=== PATIENT | female | born 1970 | race Caucasian/White ===

== ENCOUNTER 2023-12-24 08:22 | Outpatient (CLI) | payer BC, SELFPAY ==
--- OUTSIDE RECORDS SUMMARY | 2023-12-24 08:23 | XMS_ITS ---
Author Organization [facility] Address [address] [place] [address] Care Team Providers Care Rfid Engineer Name Role Phone Unavailable Unavailable Unavailable Surgery Details Not on file Complications Check Surgery Details section. Procedure Estimated Blood Loss Check Surgery Details section. Procedure Findings Check Surgery Details section. Procedure Specimens Taken Check Surgery Details section.
--- OUTSIDE RECORDS SUMMARY | 2023-12-24 08:23 | XMS_ITS | Referral Summary ---
Author Organization [facility] Address [address] [place] [address] Care Team Providers Care Apparatus Operator Name Role Phone Unavailable Primary Care Provider Unavailabl e Source Comments Patient records contain information from all sites at [facility]. For routine questions regarding patient records, call [phone] during business hours, M-F 8:00 AM - 5:00 PM Central Time. Record requests for emergency care only can be directed to [phone] at any time.[facility] Social History Tobacco Use Types Packs/Day Years Used Date Smoking Tobacco: Never Assessed Dental Answer Date Recorded Dental: Regular Dentist Unknown 08/07/19 24 Sex and Gender Information Value Date Recorded Sex Assigned at Not on file Gender Identity Not on file Sexual Orientation Not on file Plan of Treatment Not on file
--- OUTSIDE RECORDS SUMMARY | 2023-12-24 08:23 | XMS_ITS | Clinical Summary ---
Author Organization [facility] Address [address] [place] [address] Care Team Providers Care Information Services Assistant Name Role Phone Unavailable Primary Care Provider Unavailabl e Source Comments Patient records contain information from all sites at [facility]. For routine questions regarding patient records, call [phone] during business hours, M-F 8:00 AM - 5:00 PM Central Time. Record requests for emergency care only can be directed to [phone] at any time.[facility] Social History Tobacco Use Types Packs/Day Years Used Date Smoking Tobacco: Never Assessed Dental Answer Date Recorded Dental: Regular Dentist Unknown 08/07/19 24 Sex and Gender Information Value Date Recorded Sex Assigned at Not on file Gender Identity Not on file Sexual Orientation Not on file Plan of Treatment Health Maintenance Due Date Last Done Comments CT Colonography 1969 Cervical Cancer Screening 1969 Cologuard 1969 Colonoscopy 1969 Colorectal Cancer Screening 1969 FIT 1969 HIV Screening 1969 Hepatitis C Screening 1969 Mammogram 1969 Zoster Vaccines (1 of 2) 07/19/2019 Depression Screening (Annual PHQ-2) 03/19/2023 COVID-19 Vaccine ( season) 2023 Influenza Vaccine (#1) 2023 0, 12/18/2018, 12/19/2017, Additional history exists Fasting Glucose for Diabetes Screening 05/08/2026 05/08/2023 DTaP,Tdap,and Td Vaccines (3 - Td or Tdap) 06/08/2026 06/08/2016, 12/14/2010 Lipid (Cholesterol) Screening 05/08/2028 05/08/2023 Hepatitis B Vaccines Completed 04/21/2013, 11/19/2012, 10/09/2012, Additional history exists Pneumococcal vaccine (0-64 years) Aged Out No longer eligible based on patient's age to complete this topic
--- NOTE | 2023-12-24 10:03 | W.ANESCHARGE ---
Anesthesia Charges Start Date/Time Anesthesia Start Date: 12/24/23 Anesthesia Start Time: 09:20 Stop Date/Time Anesthesia Stop Date: 12/24/23 Anesthesia Stop Time: 09:57
--- NOTE | 2023-12-24 10:08 | W.ANESCHARGE ---
Anesthesia Charges Start Date/Time Anesthesia Start Date: 12/24/23 Anesthesia Start Time: 09:20 Stop Date/Time Anesthesia Stop Date: 12/24/23 Anesthesia Stop Time: 09:57
== END 2023-12-24 08:23 | disposition home or self-care (01) ==
LOC: OP CLINIC 08:22
PROVIDERS: PCP Family Medicine; Visit Provider Internal Medicine
DX: Z12.11 Encounter for screening for malignant neoplasm of colon (principal)
CPT/HCPCS: 00811; 00812; 45378; J2704

== ENCOUNTER 2024-01-02 07:25 | Outpatient (CLI) | payer BC, SELFPAY ==
--- OUTSIDE RECORDS SUMMARY | 2024-01-02 07:27 | XMS_ITS | Clinical Summary ---
Author Organization [facility] Address [address] [place] [address] Care Team Providers Care Firestopper Installer Name Role Phone Unavailable Primary Care Provider Unavailabl e Source Comments Patient records contain information from all sites at [facility]. For routine questions regarding patient records, call [phone] during business hours, M-F 8:00 AM - 5:00 PM Central Time. 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
--- OUTSIDE RECORDS SUMMARY | 2024-01-02 07:27 | XMS_ITS | Data Portability ---
Author Organization [facility], [facility] Address [address] [place] [address] Care Team Providers Care Batch Freezer Operator Name Role Phone AMBERBASILIA EPPS Primary Care Provider [phone] Assessment No assessment recorded. Plan of Treatment Reminders Order Date Submit Date Provider Last Modified By Organization Details Last Modified Time Details Appointments None record ed. Lab None record ed. Referral None record ed. Procedures None record ed. Surgeries None record ed. Imaging None record ed. Medication Orders None record ed. Patient TargetsNo targets recorded. Patient Instructions Encounter Date Encounter Id Patient Instructions Last Modified By Organization Details Last Modified Time 02/06/2020 [id number] Stress incontinence was reviewed, including risk factors and treatments. Observation, physical therapy, urethral injections, and slings were discussed in detail. Risks, benefits and alternatives were all addressed. She was given literature on slings, including the CHARISS/SUFU hand-out on mid-urethral slings. Specific risks of mesh include exposure, dyspareunia, and sling loosening. She would be interested in having sling surgery at [facility] with me in [place] in March. I will work with my clinic there to arrange the procedure. [email or web address] Not available 02/08/2020 22:06:46 Reason for Referral None Reported. Results Created Date Observation Date Name Description Value Unit Range Abnormal Flag Note LastModifiedBy Organization Detail LastModifiedTime 02/09/2002/06/2020 US, bladd er No observ ation record ed. BARCODE Not Available 2019 15:12:49 Result Notes None recorded. Problems Name Problem SNOMED Code Status Onset Date Resolution Date Notes Provider Name and Address Organization Details Recorded Time Kidney stone 70390763 Active 020 NATHALINE JAHNAGILE [address] [facility],[address], [place], [address] , [facility] 0 12:28:39 Seizure disorder 802247980 Active 020 NATHALINE LORETAHNAGILE [address] [facility],[address], [place], [address] , [facility] 0 12:29:07 Malignant neoplasm of skin 498544184 [facility]20 [facility] [address] [facility],[address], [place], [address] , [facility] 0 12:29:16 Problem Notes None recorded. Procedures Surgical History Date Name Laterality Status Provider Name and Address Organization Details Recorded Time 02/06/20 Bladder Scan completed Anitra Orta [facility] 02/06/2020 16:47:22 01/18/20 05 [facility] [address] [place] [address],SUITE [facility], [place], [place], [address] [place] [address], [facility] 02/02/2020 12:30:04 Total Hysterectomy completed [facility] [address] [place] [address],[place] [address], [place], [place], [address] [place] [address], [facility] 02/02/2020 12:30:25 Tubal Ligation completed [facility] [address] [place] [address],[facility] [address], [place], [address] [place] [address], [facility] 02/02/2020 12:30:40 Imaging Results Imaging Date Name Status LastModified by Organiz ation Details LastModified Time 02/06/2020 US, bladder completed BARCODE Information n ot available 02/09/2020 15:12:49 Procedure Notes None recorded. Medical Equipment None Reported. Allergies No known drug allergies Medications Name Sig Start Date Stop Date Status Note LastModified by Organization Details LastModified Time levetiracetam 1,000 mg tablet Take 1 tablet every 12 hours by oral route. active Not Available Not Available No t Available Vitals Date Recorded Body height Body mass index (BMI) Body weight Provider Name and Address Organization Details Last Updated DateTime 02/06/2020 162.56 cm 26.1 kg/m2 09107.04 g NATHALINE JAHNAGILE [address] [facility],[address], [place], [address], [facility] 02/06/2020 16:11:45 Social History None recorded. Functional Status None recorded. Mental Status None recorded. Family History Nothing Reported. Medical History Condition Response Kidney Stones Y Cancer Gynecological HistoryNo gynecological history recorded. Obstetrics History GPAL:G 0 P 0 0 0 0 Past Encounters Encounter ID Performer Location Encounter Start Date Encounter Closed Date Diagnosis/Indication Diagnosis SNOMED-CT Code Diagnosis ICD10 Code [id number] Mikhail Alvarez MD [facility] [address] [facility],[address] [place] [address] 02/06/2020 15:59:47 02/09/2020 12:08:44 Female stress incontinence 83485037 N39.3 Health Concerns Section Related Observation LastModified by Organization Detai ls LastModified Time None Recorded Concern Status LastModified by Organization Details LastModified Time None Recorded Advance Directives Directive None Recorded Payers Encounter Date Sequence Insurance Name Policy Number Policy [place] Covered Member ID [place] Member ID Guarantor Name 02/06/2020 1 [facility] 1 Dov Rosario [id number] Notes Date Note Type Note Provider Name and Address Organization Details Recorded Time 02/06/2020 text/html HPI Notes: 02/06/20: New pt NICOLA with coughing sneezing laughing, have tried kegels Sometimes wears pads Used to get a lot infections after baths/swimming but avoids and better now Has had hematuria with bladder infections Has passed on her own non smoker, no blood thinner hx of hysterectomy/ 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
--- OUTSIDE RECORDS SUMMARY | 2024-01-02 07:27 | XMS_ITS | Referral Summary ---
Author Organization [facility] Address [address] [place] [address] Care Team Providers Care City Route Driver Name Role Phone Unavailable Primary Care Provider Unavailabl e Source Comments Patient records contain information from all sites at [facility]. For routine questions regarding patient records, call [phone] during business hours, M-F 8:00 AM - 5:00 PM Central Time. 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
--- OUTSIDE RECORDS SUMMARY | 2024-01-02 07:28 | XMS_ITS ---
Author Organization [facility] Address [address] [place] [address] Care Team Providers Care Java Manager Name Role Phone Unavailable Unavailable Unavailable Surgery Details Not on file Complications Check Surgery Details section. Procedure Estimated Blood Loss Check Surgery Details section. Procedure Findings Check Surgery Details section. Procedure Specimens Taken Check Surgery Details section.
--- NOTE | 2024-01-02 07:45 | CRLHL7_ITS ---
For Patients: As a result of the Cures Act, medical imaging exams and procedure reports are released immediately into your electronic medical record. You may view this report before your referring provider. If you have questions, please contact your health care provider. BILATERAL SCREENING MAMMOGRAM WITH COMPUTER-AIDED DETECTION AND TOMOSYNTHESIS TECHNIQUE: CC and MLO views were obtained. These mammographic images have been obtained using full-field digital technique. These mammographic images were interpreted with the benefit of computer-aided detection. Breast Tomosynthesis was used in this interpretation. COMPARISON FILM: 02/25/18, 04/14/16, 08/12/14. FINDINGS: There are scattered areas of fibroglandular density IMPRESSION: There is no radiographic evidence for malignancy. ASSESSMENT: BI-RADS Category 1: Negative RECOMMENDATION: Routine screening mammogram in 1 year. A lay language report of this examination will be provided to the patient. Milton Arriaza M.D. Diagnostic Radiologist [email or web address] Transcribed: 2:47 p.mDarek mcdonnell/Dictated by: Milton Arriaza MD @ 01/08/2024 8:58:00 AM (Electronically Signed)
== END 2024-01-02 07:26 | disposition home or self-care (01) ==
LOC: MAMMO 07:26
PROVIDERS: PCP Family Medicine; Visit Provider Family Medicine
DX: Z12.31 Encounter for screening mammogram for malignant neoplasm of breast (principal)
CPT/HCPCS: 77063; 77067

== ENCOUNTER 2024-12-26 19:00 | Outpatient (CLI) | payer BC, SELFPAY | END 2024-12-26 19:01 | disposition home or self-care (01) | PROVIDERS: PCP Family Medicine; Visit Provider Family Medicine | DX: N30.00 Acute cystitis without hematuria (principal) | CPT/HCPCS: 87086 ==

== ENCOUNTER 2024-12-28 13:37 | Emergency (ER) | payer BC, SELFPAY ==
--- OUTSIDE RECORDS SUMMARY | 2024-12-28 13:39 | XMS_ITS | Clinical Summary ---
Author Organization [facility] Address [address] [place] [address] Care Team Providers Care Director Of Laboratory Operations Name Role Phone Unavailable Primary Care Provider Unavailabl e Source Comments Patient records contain information from all sites at [facility]. For routine questions regarding patient records, call [phone] during business hours, M-F 8:00 AM - 5:00 PM Central Time. 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 Gender Identity Not on file Sexual Orientation Not on file Plan of Treatment Health Maintenance Due Date Last Done Comments CT Colonography 1969 Cervical/Vaginal Cancer Screening 1969 Cologuard 1969 Colonoscopy 1969 Colorectal Cancer Screening 1969 FIT 1969 HIV Screening 1969 Hepatitis C Screening 1969 Mammogram 1969 Pneumococcal vaccine (50+ years) (1 of 1 - PCV) 07/19/2019 Zoster Vaccines (1 of 2) 07/19/2019 Depression Screening (Annual PHQ-2) 03/19/2024 COVID-19 Vaccine (1 - 2024- season) 2024 Influenza Vaccine (#1) 2024 , 12/18/2018, 12/19/2017, Additional history exists Fasting Glucose for Diabetes Screening 05/08/2026 05/08/2023 DTaP,Tdap,and Td Vaccines (3 - Td or Tdap) 06/08/2026 06/08/2016, 12/14/2010 Lipid (Cholesterol) Screening 05/08/2028 05/08/2023 Hepatitis B Vaccines Completed 04/21/2013, 11/19/2012, 10/09/2012, Additional history exists IPV Vaccines Aged Out No longer eligi ble based on patient's age to complete this topic Insurance [employer]
--- OUTSIDE RECORDS SUMMARY | 2024-12-28 13:39 | XMS_ITS | Data Portability ---
Author Organization [facility], [facility] Address [address] [place] [address] Care Team Providers Care Trader Fixed Income Name Role Phone SAMANTHA BASILIA Primary Care Provider Assessment No assessment recorded. Plan of Treatment [...] By Organization Details Last Modified Time 02/06/2020 [id number] Stress incontinence was reviewed, including risk factors and treatments. Observation, physical therapy, urethral injections, and slings were discussed in detail. Risks, benefits and alternatives were all addressed. She was given literature on slings, including the CHARISS/SUFU hand-out on mid-urethral slings. Specific risks of mesh include exposure, dyspareunia, and sling loosening. She would be interested in having sling surgery at [facility] with me in [place] in March. I will work with my [...] Address Organization Details Recorded Time Kidney stone 20986837 Active 020 [facility] JAR[facility] [address] [facility],[place] [address], [place], [address] , [facility] 0 12:28:39 Seizure disorder 494110006 Active 020 [facility] JAREDAGILE [address] [place] [address],[address] [place] [address], [address] , [facility] 0 12:29:07 Malignant neoplasm of skin 855837637 Active 020 [facility] [address] [place] [address],[address], [address] , [facility] 0 12:29:16 Problem Notes None recorded. Procedures Surgical History Date Name Laterality Status Provider Name and Address Organization Details Recorded Time 02/06/20 20 Bladder Scan completed Anitra Orta [facility] 02/06/2020 16:47:22 01/18/20 05 Cholecystectomy completed [address], [address], [facility] 02/02/2020 12:30:04 Total Hysterectomy completed [address],[place] [address], [facility] 02/02/2020 12:30:25 Tubal Ligation completed [place] [address], [facility] 02/02/2020 12:30:40 Imaging Results None recorded. Procedure Notes None recorded. Medical Equipment None [...] Updated DateTime 02/06/2020 162.56 cm 26.1 kg/m2 50998.04 g [facility] JAREDAGI [address] [place] [address],[address], [address], [facility] 02/06/2020 16:11:45 Social History None recorded. Functional Status None recorded. Mental Status None recorded. Family History Nothing Reported. Medical History Condition Response Cancer Kidney Stones Y Gynecological HistoryNo gynecological history recorded. Obstetrics History GPAL:G 0 P 0 0 0 0 Past Encounters Encounter ID Performer Location Encounter Start Date Encounter Closed Date Diagnosis/Indication Diagnosis SNOMED-CT Code Diagnosis ICD10 Code Diagnosis IMO Codes Diagnosis Note [id number] Mikhail Alvarez MD [facility] [address] [facility],[address] [facility] [address] 02/06/2020 15:59:47 02/09/2020 12:08:44 Female urinary stress incontinence 85126462 N39.3 Health Concerns Section Related Observation LastModified by Organization Detai ls LastModified Time None Recorded Concern Status LastModified by Organization Details LastModified Time None Recorded Advance Directives Directive None Recorded Payers Insurance Date Sequence Insurance Name Policy Number Policy [place] Covered Member ID [place] Member ID Guarantor Name 03/02/2020 1 [facility] 1 Dov Justinetracylynne [id number] Notes Date Note Type Note Provider Name and Address Organization Details Recorded Time 02/06/2020 text/html 02/06/20: New pt NICOLA with coughing sneezing laughing, have tried kegels Sometimes wears pads Used to get a lot infections after baths/swimming but avoids and better now Has had hematuria with bladder infections Has passed on her own non smoker, no blood thinner 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
--- OUTSIDE RECORDS SUMMARY | 2024-12-28 13:39 | XMS_ITS | Clinical Summary ---
Author Organization [facility] Address [address] [place] [id number] Care Team Providers Care Oral And Maxillofacial Surgeon Name Role Phone Debbie Bose MD Primary Care Provi kenny Tammie Gross Unavailable [phone] Unavailable Allergies No known active allergies Medications levETIRAcetam (KEPPRA) 500 mg tablet Take 1,250 mg by mouth two times daily. 02/26/20 20 Active naltrexone (REVIA) 50 mg tabletIndications: Class 2 severe obesity with body mass index (BMI) of 35 to 39.9 with serious comorbidity,Cravin g for particular food Take 0.5 Tablets (25 mg) by mouth once daily. 30 Tablet 1 4 3:39 PM DATABASE OPERATOR 05/08/19 24 Active ondansetron (ZOFRAN ODT) 4 mg disintegrating tabletIndications: Nausea Place 2 Tablets (8 mg) on the tongue every 8 hours if needed for Nausea/Vomiting. 10 Tablet 4 9:08 AM DATABASE OPERATOR 05/14/19 24 Active loperamide (IMODIUM) 2 mg capsuleIndications :Diarrhea, unspecified type Take 2 capsules (4mg) orally with 1st loose stool, then 1 capsule (2mg) with other loose stools. Max 16 mg in 24 hrs. 40 Capsule 4 9:08 AM DATABASE OPERATOR 05/14/19 24 Active FreeStyle Sheldon 3 Sensor for continuous blood glucose monitor (CGM)Indications:H yperglycemia To be used to read blood sugars, follow outside sales representative directions. 6 Each 3 05/14/19 24 Active Active Problems Problem Noted Date Diagnosed Date Kidney stone 02/01/2020 Seizure disorder Overview (12/14/2010): petit seizures, currently does not see neurologist No seizures in several yrs, not currently no medication Skin cancer of upper limb or shoulder Overview (12/14/2010): unsure of what type Immunizations Immunization Administration Dates Next Due Hepatitis B (Adult) 04/21/2013, 3,10/09/2012,1991,10/06/1991,09/04/1991 Influenza Intradermal PF 18-64 yrs 02/01/2011 Influenza RIV4 (Age 18+ Year s) PRESERV FREE 12/18/2018 Influenza Virus, Unspecified 04/25/2013 Influenza, IIV3 (Age 6-35 mos) 12/24/2019,2017,12/31/2012 Influenza, IIV3 (Age >=3 years) 01/15/20 14,01/05/2004,01/21/2003,2001 Influenza, IIV4 01/03/2017,12/24/2015 MMR 10/09/2012 Td (Age >=7 Years) 07/14/2004 Tdap 06/08/2016,12/14/2010 Family History Medical History Relation Name Comments Diabetes Father Other Father CHF, leg amputa tion from DM Seizures Maternal Grandfather Seizures Mother Diabetes Sister Relation Name Status Comments Father Maternal Grandfather Maternal Grandmother Mother Alive Paternal Grandfather Paternal Grandmother Sister Alive Social History Tobacco Use Types Packs/Day Years Used Date Smoking Tobacco: Never Passive Smoke Exposure: Past Smokeless Tobacco: Never Tobacco Cessation:Counseling Given: Not Answered Alcohol Use Standard Drinks/Week Comments Yes 0 (1 standard drink = 0.6 oz pur e alcohol) rare Social Connections Answer Date Recorded Frequency of Communication with Friends and Fami ly Not on file 05/08/2023 Interpersonal Safety Answer Date Record ed Are you being hit, kicked, p ushed or yelled at (see row info)? No 05/14/2023 Interpersonal Safety Abuse 12 - 18 Not on file 05/14/2023 Interpersonal Safety Ambulatory Vulnerability No t on file 05/14/2023 Comments No Sex and Gender Information Value Date Recorded Sex Assigned at Not on file Legal Sex Female 6:11 AM DATABASE OPERATOR Gender Identity Not on file Sexual Orientation Not on file Obstetrics History Para Term AB IAB SAB Ectopic Multiple Livin g Live Births 5 4 2 2 1 0 1 0 0 2 Date Outcome GA Total Labor Labor/2nd/3rd Weight Sex Type Anes PTL Concepcion A1 A5 Name Clin Term Term SAB Last Filed Vital Signs Vital Sign Reading Time Taken Comments Blood Pressure 119/88 05/14/2023 6:37 AM DATABASE OPERATOR Pulse 61 05/14/2023 6:37 AM DATABASE OPERATOR Temperature 36.7 C (98.1 F) 05/14/2023 6:27 AM DATABASE OPERATOR Respiratory Rate 18 05/14/2023 6:27 AM DATABASE OPERATOR Oxygen Saturation 94% 05/14/2023 6:37 AM DATABASE OPERATOR Inhaled Oxygen Concentration - - Weight 91.6 kg (202 lb) 05/14/2023 6:27 AM DATABASE OPERATOR Height 162.6 cm (5' 4) 05/14/2023 6:27 AM DATABASE OPERATOR Body Mass Index 34.67 05/14/2023 6:27 AM DATABASE OPERATOR Plan of Treatment Health Maintenance Due Date Last Done Comments Depression screening for age 12+ 1981 HIV for age 15-65 1984 BMI (ht and wt on same day) for age 18+ 07/19/1987 Hepatitis C screening for ag e 18-79 07/19/1987 Colonoscopy through age 75 2014 Mammogram for age 45-75 2014 12/19/2010 Pneumococcal series for age 50+ (1 of 1 - PCV) 07/19/2019 Zoster (shingles) series for age 50+ (1 of 2) 07/19/2019 COVID-19 vaccine series (1 - 2023- season) 2024 Influenza Vaccine (#1) 2024 0, 12/18/2018, 12/19/2017, Additional history exists Tetanus booster 06/08/2026 06/08/2016, 11/18, 07/14/2004 Lipids for age 45-75 05/08/2028 05/08/2023, 12/15/19 11 RSV vaccine for adults or (1 - 1-dose 75+ series) 2044 Hepatitis B series for 19+ Completed 04/21, 11/19/2012, 10/09/2012, Additional history exists Medical Devices Implanted Type Area Guidance Consultant Device Identifier Shelf Expiration Date Model / Serial / Lot Sling Pelvic Altis Sis Continence - [id number] Implanted:Qty: 1 on 03/25/2020 by Mikhail Alvarez MD at [facility] N/A: Vagina Coloplast Margaret 10/02/2020 [id number] / / [id number] Procedures Procedure Name Priority Date/Time Associated Diagnosis Comments LIPID PANEL W REFLEX MEASURED LDL Routine 05/08/2023 3:30 PM DATABASE OPERATOR Class 2 severe obesity with body mass index (BMI) of 35 to 39.9 with serious comorbidity (HC) XR MAMMO BILAT SCREEN FFDM (IA) Routine 12/19/2010 9:34 AM CDT Other screening mammogram from Last 3 Months or Most Recently Relevant to Health Maintenance Results * LIPID PANEL W REFLEX MEASURED LDL (05/08/2023 3:30 PM DATABASE OPERATOR) CHOLESTEROL,TOTAL 192 100 - 199 mg/dL 05/08/2023 4:10 PM [facility] Comment: Cholesterol, Total Reference Ranges Desirable <200 mg/dL Borderline 200-239 mg/dL High >=240 mg/dL TRIGLYCERIDES 105 <150 mg/dL 05/08/2023 4:10 PM [facility] HDL CHOLESTEROL 57 >40 mg/dL 4:10 PM [facility] NON-HDL CHOLESTEROL 135 <145 mg/dl 05/08/2023 4:10 PM [facility] CHOL/HDL RATIO 3.37 <4.50 05/08/2023 4:10 PM [facility] LDL CHOLESTEROL 114 <=130 mg/dL 05/08/2023 4:10 PM [facility] VLDL CHOLESTEROL 21 <=30 mg/dL 05/08/2023 4:10 PM [facility] PROVIDER ORDERED STATUS RANDOM 05/08/2023 4:10 PM DATABASE OPERATOR [facility] Blood BLOOD SPECIMEN / Unknown Venipuncture / Unknown 05/08/2023 3:30 PM DATABASE OPERATOR 05/08/2023 3:32 PM DATABASE OPERATOR us Debbie Bose MD CHEMISTRY Fin al Result [facility] [address] [place] [address] * XR MAMMO BILAT SCREEN FFDM (12/19/2010 9:34 AM CDT) Anatomical Region Laterality Modality BREASTS, Breast Left, Breast Right Bilateral Mammography Impressions 12/19/2010 12:26 PM CDT There is no radiographic evidence for malignancy. Recommend annual mammograms. A lay language report of this examination will be provided to the patient. MAMMOGRAM ASSESSMENT: ACR 1 Negative Narrative 12/19/2010 12:26 PM CDT XR MAMMO BILAT SCREEN FFDM [G0202.0] CLINICAL HISTORY: This is an asymptomatic 40 y.o. patient. INDICATION FOR EXAM: Mammogram Screening. TECHNIQUE: CC & MLO views were obtained. This digital study was evaluated with the assistance of Computer-Aided Detection. COMPARISON FILM: This is a baseline study. FINDINGS: Mammographically, the breast tissue is heterogeneously dense, which could obscure detection of small masses (approximately 51% - 75% glandular). There are no dominant masses, suspicious micro calcifications or areas of architectural distortion. Procedure Note Hilario Riojas DO - 12/19/2010 XR MAMMO BILAT SCREEN FFDM [G0202.0] CLINICAL HISTORY: This is an asymptomatic 40 y.o. patient. INDICATION FOR EXAM: Mammogram Screening. TECHNIQUE: CC & MLO views were obtained. This digital study was evaluatedwith the assistance of Computer-Aided Detection. COMPARISON FILM: This is a baseline study. FINDINGS: Mammographically, the breast tissue is heterogeneously dense,which could obscure detection of small masses (approximately 51% - 75%glandular). There are no dominant masses, suspicious micro calcificationsor areas of architectural distortion. IMPRESSION: There is no radiographic evidence for malignancy. Recommendannual mammograms. A lay language report of this examination will be provided to the patient. MAMMOGRAM ASSESSMENT: ACR 1 Negative Pamela burnett Result from Last 3 Months or Most Recently Relevant to Health Maintenance Insurance Advance Directives * Full Code (Latest Code Status on File) Date Activated Date Inactivated Comments 03/25/2020 10:29 AM 03/25/2020 4:49 PM Question Answer Comments Code Status Discussion: Discussed Care Teams Oral And Maxillofacial Surgeon Relationship Specialty Start Date End Date Debbie Bose MD [address] [place] [address] PCP - General Family Practice 05/14/23 Tammie Gross PA [address] [place] [address] Physician Chaperon 05/17/[address] [address] Exhibit Builder 05/17/23
--- OUTSIDE RECORDS SUMMARY | 2024-12-28 13:39 | XMS_ITS | Patient Health Record ---
Author Organization [facility] Address [address] [place] [address] Care Team Providers Care Road Test Examiner Name Role Phone Narinder Kemp MD Unavailable [phone] Reason For Referral No Information Plan Of Treatment No Information Insurance Providers Payer Name Payer Address Payer Phone Subscriber Number Group Number Insured Name Patient Relationship to Insured Coverage Start Date Coverage End Date [employer] ([employer]) [address] [place] [address] Crissy Rosario Self - patient is the insured [facility] [id number] [place] [address] [address] [place], [place] [id number] Dov Rosario Spouse - patient is the spouse of the insured 8
[2024-12-28 13:45] VITALS: BP 139/93; PULSE 82; RESP 20; TEMP 36.5; O2SAT 96; BMI 35.0
--- NOTE | 2024-12-28 14:13 | ED.ABDPAIN ---
HPI - Abdominal Pain General Time Seen by Provider: 14:13 <Mayela Coulter MD - Last Filed: 12/30/24 19:54> Date Seen: 12/28/24 <Mayela Coulter MD - Last Filed: 12/30/24 19:54> Chief Complaint: Abdominal Pain <Mayela Coulter MD - Last Filed: 12/30/24 19:54> Stated Complaint: Lower ABD pain, Pelvic pain,Back <Mayela Coulter MD - Last Filed: 12/30/24 19:54> Time Seen by Provider: 12/28/24 14:12 <Mayela Coulter MD - Last Filed: 12/30/24 19:54> Source: patient and RN notes reviewed <Mayela Coulter MD - Last Filed: 12/30/24 19:54> Mode of arrival: ambulatory <Mayela Coulter MD - Last Filed: 12/30/24 19:54> Limitations: no limitations <Mayela Coulter MD - Last Filed: 12/30/24 19:54> History of Present Illness HPI narrative: This 54-year-old female is coming in with ongoing concerns of right lower pelvic and suprapubic pain associated with urinary symptoms. She was having urinary frequency, slight urgency and feeling incomplete emptying accompanying pelvic discomfort after urination. Her urinalysis was not definitive but she has had a history of UTIs and it was decided to treat her with Bactrim DS. Her urine culture has come back negative. She is still noting discomfort, she is feeling pain radiating towards the vagina. She is status post hysterectomy. She has had a history of kidney stones. She notes no fevers or chills, no nausea or vomiting. The antibiotic really has not changed her urinary symptoms. <Mayela Coulter MD - Last Filed: 12/30/24 19:54> Related Data Home Medications: Home Medications ?Medication ?Instructions ?Recorded ?Confirmed levetiracetam 500 mg tablet 1,250 mg PO BID 12/05/23 12/30/24 Previous Rx's ?Medication ?Instructions ?Recorded estradiol 10 mcg vaginal tablet 10 mcg vaginal 2XW #28 tabs 12/30/24 (Vagifem) <Mayela Coulter MD - Last Filed: 12/30/24 19:54> Allergies/Adverse Reactions: Allergies Allergy/AdvReac Type Severity Reaction Status Date / Time No Known Drug Allergies Allergy Verified 12/30/24 09:31 <Mayela Coulter MD - Last Filed: 12/30/24 19:54> Review of Systems Narrative As per HPI. 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 - Other obesity due to excess calories (ICD-10) <Mayela Coulter MD - Last Filed: 12/30/24 19:54> Surgical History: Surgical History History of cosmetic surgery ?Z98.890 - Other specified postprocedural states (ICD-10) History of bladder suspension procedure (03/25/20) ?Z98.890 - Other specified postprocedural states (ICD-10) ?Z87.448 - Personal history of other diseases of urinary system (ICD-10) History of cholecystectomy (2004) ?Z90.49 - Acquired absence of other specified parts of digestive tract (ICD-10) History of hand surgery (11/09/15) ?Z98.890 - Other specified postprocedural states (ICD-10) History of brain surgery (2002) ?Z98.890 - Other specified postprocedural states (ICD-10) History of tubal ligation ?Z98.51 - Tubal ligation status (ICD-10) History of hysterectomy (2005) ?Z90.710 - Acquired absence of both cervix and uterus (ICD-10) <Mayela Coulter MD - Last Filed: 12/30/24 19:54> Family History: Family History Father CHF (congestive heart failure) Diabetes Alcohol dependence Son Asthma Depression Sister Diabetes Maternal Grandfather Seizure disorder Mother Seizure disorder Alcohol dependence <Mayela Coulter MD - Last Filed: 12/30/24 19:54> Social History: 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 Does not exercise regularly. No tobacco use or illicit drug use. No alcohol use. Feels safe in her home. Has 2 kids. . What is your current living situation?: I presently have a place to live Problems where you live: no known problems In the past 12 months, utilities in danger of being shut off: no In past 12 months, lack of transportation kept you from medical appts, meetings, work, or getting things needed for daily living: no In the past 12 mos, have been you worried that your food would run out before you had money to buy more?: never true In the past 12 mos, the food you bought just didn't last and you didn't have money to buy more?: never true Smoking Status: Never smoker How often do you have a drink containing alcohol: monthly or less AUDIT-C Alcohol total score: 1 Non-prescribed substance use: denies use How often does anyone, including family, friends and others, physically hurt you: never How often does anyone, including family, friends and others, insult or talk down to you: never How often does anyone, including family, friends and others, threaten you with harm: never How often does anyone, including family, friends and others, scream or curse at you: never <Mayela Coulter MD - Last Filed: 12/30/24 19:54> Exam Const: Vital Signs, click to edit/add: Vital Signs - 24 hr 12/28/24 13:45 12/28/24 16:33 12/28/24 19:28 Temperature 97.7 F 97.7 F 97.3 F L Pulse Rate [Pulse Oximeter] 82 52 L 54 L Respiratory Rate 20 18 18 Blood Pressure [Ri ght Upper Arm] 139/93 H 117/85 124/92 H Pulse Oximetry 96 96 95 Oxygen Delivery Me thod Room Air Room Air Room Air This 54-year-old female is alert, interactive, no apparent distress. Sclera clear, face atraumatic, speech normal. Lungs are clear, good air entry come to wheeze or crackles, no tachypnea, no accessory muscle use. She has no CVA tenderness. CV regular rate and rhythm, no murmur, normal S1-S2. Abdomen is soft, nondistended, normal bowel sounds. She has some left lower quadrant tenderness juxtaposed by the suprapubic area, I do not feel any masses or any organomegaly, rebound or guarding. Pelvic exam and bimanual exam deferred at this moment. <Mayela Coulter MD - Last Filed: 12/30/24 19:54> Vital Signs, click to edit/add: Vital Signs - 24 hr 12/28/24 13:45 12/28/24 16:33 12/28/24 19:28 Temperature 97.7 F 97.7 F 97.3 F L Pulse Rate [Pulse Oximeter] 82 52 L 54 L Respiratory Rate 20 18 18 Blood Pressure [Ri ght Upper Arm] 139/93 H 117/85 124/92 H Pulse Oximetry 96 96 95 Oxygen Delivery Me thod Room Air Room Air Room Air <Mikhail Alvarez MD - Last Filed: 12/28/24 20:10> Documenting provider has reviewed patient's vital signs: yes <Mayela Coulter MD - Last Filed: 12/30/24 19:54> Course Course ED Course: Patient admits she was wondering about ovarian cyst, reviewed that certainly is in the differential. Given her symptoms, I am most concerned about a kidney stone. Will start with a noncontrast CT. Will give her some IV Toradol. If she does provide urine, we can recheck the urinalysis. Will get some basic labs on her. She understands that we may need to proceed with pelvic ultrasonography as well. <Mayela Coulter MD - Last Filed: 12/30/24 19:54> Reevaluation(s) Time of Reevaluation #1: 16:40 <Mayela Coulter MD - Last Filed: 12/30/24 19:54> Reevaluation #1: Patient's CT has not been read yet; have turned care over to Dr. Alvarez. <Mayela Coulter MD - Last Filed: 12/30/24 19:54> Vital Signs Vital signs: Initial Vital Signs Temperature 97.7 F 12/28/24 13:45 Temperature Source Temporal Artery Scan 12/28/24 13:45 Pulse Rate 82 12/28/24 13:45 Respiratory Rate 20 12/28/24 13:45 Blood Pressure 139/93 H 12/28/24 13:45 Blood Pressure Mean 108 H 12/28/24 13:45 Pulse Oximetry 96 12/28/24 13:45 Oxygen Delivery Method Room Air 12/28/24 13:45 Vital Signs Temperature 97.7 F 12/28/24 13:45 Pulse Rate 82 12/28/24 13:45 Respiratory Rate 20 12/28/24 13:45 Blood Pressure 139/93 H 12/28/24 13:45 Pulse Oximetry 96 12/28/24 13:45 Oxygen Delivery Method Room Air 12/28/24 13:45 Temperature 97.3 F L 12/28/24 19:28 Pulse Rate 54 L 12/28/24 19:28 Respiratory Rate 18 12/28/24 19:28 Blood Pressure 124/92 H 12/28/24 19:28 Pulse Oximetry 95 12/28/24 19:28 Oxygen Delivery Method Room Air 12/28/24 19:28 <Mayela Coulter MD - Last Filed: 12/30/24 19:54> Initial Vital Signs Temperature 97.7 F 12/28/24 13:45 Temperature Source Temporal Artery Scan 12/28/24 13:45 Pulse Rate 82 12/28/24 13:45 Respiratory Rate 20 12/28/24 13:45 Blood Pressure 139/93 H 12/28/24 13:45 Blood Pressure Mean 108 H 12/28/24 13:45 Pulse Oximetry 96 12/28/24 13:45 Oxygen Delivery Method Room Air 12/28/24 13:45 Vital Signs Temperature 97.7 F 12/28/24 13:45 Pulse Rate 82 12/28/24 13:45 Respiratory Rate 20 12/28/24 13:45 Blood Pressure 139/93 H 12/28/24 13:45 Pulse Oximetry 96 12/28/24 13:45 Oxygen Delivery Method Room Air 12/28/24 13:45 Temperature 97.3 F L 12/28/24 19:28 Pulse Rate 54 L 12/28/24 19:28 Respiratory Rate 18 12/28/24 19:28 Blood Pressure 124/92 H 12/28/24 19:28 Pulse Oximetry 95 12/28/24 19:28 Oxygen Delivery Method Room Air 12/28/24 19:28 <Mikhail Alvarez MD - Last Filed: 12/28/24 20:10> Medications Administered Medications: Discontinued Medications Generic Name Dose Route Start Last Admin Trade Name Freq PRN Reason Stop Dose Admin Acetaminophen 1,000 mg 12/28/24 17:23 12/28/24 17:40 Acetaminophen 500 Mg Tablet PO 12/28/24 17:24 1,000 mg ONCE ONE Administration Ketorolac Tromethamine 15 mg 12/28/24 14:19 12/28/24 14:29 Ketorolac 15 Mg/Ml Inj IVP 12/28/24 14:20 15 mg ONCE ONE Administration <Mayela Coulter MD - Last Filed: 12/30/24 19:54> Discontinued Medications Generic Name Dose Route Start Last Admin Trade Name Freq PRN Reason Stop Dose Admin Acetaminophen 1,000 mg 12/28/24 17:23 12/28/24 17:40 Acetaminophen 500 Mg Tablet PO 12/28/24 17:24 1,000 mg ONCE ONE Administration Ketorolac Tromethamine 15 mg 12/28/24 14:19 12/28/24 14:29 Ketorolac 15 Mg/Ml Inj IVP 12/28/24 14:20 15 mg ONCE ONE Administration <Mikhail Alvarez MD - Last Filed: 12/28/24 20:10> MDM - Abdominal Pain MDM Narrative Medical decision making narrative: Patient signed out to Dr. Alvarez at shift change at 4:30 p.m.. Patient presents with pelvic and lower abdominal pain without a clear source. She was seen in urgent care couple of days ago and given a course of Bactrim for possible UTI although urinalysis and urine culture were normal. Laboratory workup here in the ER today is not revealing. White count normal. BMP normal. Glucose normal. CRP normal. Urinalysis normal. No sign of UTI. CT abdomen pelvis, stone protocol, noncontrast was obtained. Results include Impression : 1. No acute abnormalities of the abdomen or pelvis identified. No hydronephrosis. No uroliths. Dr. Alvarez recheck the patient at 5:10 p.m. Overall she is doing well. Read of the on exam is benign but she ventilation equipment tender in the pelvis. We discussed the situation and so far no clear explanation. She is still concerned about potentially ovarian pathology (but confirms that she has had a hysterectomy). Will go ahead with pelvic ultrasound. 1957-pelvic ultrasound result came back from Radiology IMPRESSION: 1. No acute findings. 2. Hysterectomy. 3. Neither ovary was seen. Recheck the patient at 8:00 p.m.. She is sitting up in a bedside chair. Still symptoms but no severe worsening pain. Discussed the ultrasound and CT results so far. She expresses disappointment and frustration and not getting a clear diagnosis based on all this testing but also understands why so far diagnosis is elusive. At this point we do not see any acute medical or surgical problem requiring surgery or admission. She would like to discharge home from the ER and no plans to follow-up with the OBGYN clinic which I think is reasonable. We discussed potential for vaginal cause of her pain but she denies any discharge, odor or other concern for vaginal infection. She would prefer to hold off on pelvic exam here in the ER and will get it done in [facility]. Precautions for return to the ER reviewed and questions answered. <Mikhail Alvarez MD - Last Filed: 12/28/24 20:10> Lab Data Labs: Lab Results 12/28/24 12/28/24 Range/Units 14:32 14:35 WBC 10.08 (4.50-11.00) K/uL RBC 5.06 (4.00-5.20) m/uL Hgb 14.6 (12.0-16.0) gm/dL Hct 44.0 (33.0-51.0) % MCV 87 (80-100) fL MCH 29 (26-34) pg MCHC 33 (32-36) gm/dL RDW Coeff of Shekhar 13.0 (11.5-15.5) % Plt Count 283 (140-440) K/uL Neut % (Auto) 60.8 (42.0-72.0) % Lymph % (Auto) 28.5 (20-44) % [place] % (Auto) 7.0 (0.0-11.0) % Eos % (Auto) 2.5 (0.0-7.0) % Baso % (Auto) 0.6 (0.0-3.0) % Neut # (Auto) 6.13 (1.7-7.0) K/uL Lymph # (Auto) 2.87 (0.90-2.90) K/uL [place] # (Auto) 0.70 (0.00-0.90) K/UL Eos # (Auto) 0.25 (0.00-0.50) K/uL Baso # (Auto) 0.06 (0.00-0.30) K/uL Abs Immat Gran (auto) 0.06 (0.00-0.30) K/uL Imm/Tot Granulo (auto) 0.6 % Sodium 134 L (135-149) mmol/L Potassium 3.9 (3.6-5.1) mmol/L Chloride 102 (96-114) mmol/L Carbon Dioxide 25 (20-32) mmol/L Anion Gap 7 (7-15) mEq/L BUN 14 (7-30) mg/dL Creatinine 0.9 (0.5-1.5) mg/dL Estimated Creat Clear 60.99 Estimated GFR 76 ml/min Glucose 96 (60-115) mg/dL Lactate 0.9 (0.5-1.9) mmol/L Calcium 8.9 (8.4-10.6) mg/dL C-Reactive Protein < 0.5 L (0.5-1.0) mg/dL Urine Color Yellow (Yellow) Urine Appearance Clear (Clear) Urine pH 8.5 (5.0-8.5) Ur Specific [place] 1.015 (1.000-1.030) Urine Protein Negative (Negative) Urine Glucose (UA) Negative (Negative) Urine Ketones Negative (Negative) Urine Blood Negative (Negative) Urine Nitrite Negative (Negative) Urine Bilirubin Negative (Negative) Urine Urobilinogen 0.2 (0.2-1.0) Ur Leukocyte Esterase Negative (Negative) Urine RBC 0-2 (0-2) Urine WBC 0-2 (0-5) Ur Squamous Epith Cells Few (None-Few) Urine Bacteria None (None) <Mayela Coulter MD - Last Filed: 12/30/24 19:54> Lab Results 12/28/24 12/28/24 Range/Units 14:32 14:35 WBC 10.08 (4.50-11.00) K/uL RBC 5.06 (4.00-5.20) m/uL Hgb 14.6 (12.0-16.0) gm/dL Hct 44.0 (33.0-51.0) % MCV 87 (80-100) fL MCH 29 (26-34) pg MCHC 33 (32-36) gm/dL RDW Coeff of Shekhar 13.0 (11.5-15.5) % Plt Count 283 (140-440) K/uL Neut % (Auto) 60.8 (42.0-72.0) % Lymph % (Auto) 28.5 (20-44) % [place] % (Auto) 7.0 (0.0-11.0) % Eos % (Auto) 2.5 (0.0-7.0) % Baso % (Auto) 0.6 (0.0-3.0) % Neut # (Auto) 6.13 (1.7-7.0) K/uL Lymph # (Auto) 2.87 (0.90-2.90) K/uL [place] # (Auto) 0.70 (0.00-0.90) K/UL Eos # (Auto) 0.25 (0.00-0.50) K/uL Baso # (Auto) 0.06 (0.00-0.30) K/uL Abs Immat Gran (auto) 0.06 (0.00-0.30) K/uL Imm/Tot Granulo (auto) 0.6 % Sodium 134 L (135-149) mmol/L Potassium 3.9 (3.6-5.1) mmol/L Chloride 102 (96-114) mmol/L Carbon Dioxide 25 (20-32) mmol/L Anion Gap 7 (7-15) mEq/L BUN 14 (7-30) mg/dL Creatinine 0.9 (0.5-1.5) mg/dL Estimated Creat Clear 60.99 Estimated GFR 76 ml/min Glucose 96 (60-115) mg/dL Lactate 0.9 (0.5-1.9) mmol/L Calcium 8.9 (8.4-10.6) mg/dL C-Reactive Protein < 0.5 L (0.5-1.0) mg/dL Urine Color Yellow (Yellow) Urine Appearance Clear (Clear) Urine pH 8.5 (5.0-8.5) Ur Specific [place] 1.015 (1.000-1.030) Urine Protein Negative (Negative) Urine Glucose (UA) Negative (Negative) Urine Ketones Negative (Negative) Urine Blood Negative (Negative) Urine Nitrite Negative (Negative) Urine Bilirubin Negative (Negative) Urine Urobilinogen 0.2 (0.2-1.0) Ur Leukocyte Esterase Negative (Negative) Urine RBC 0-2 (0-2) Urine WBC 0-2 (0-5) Ur Squamous Epith Cells Few (None-Few) Urine Bacteria None (None) <Mikhail Alvarez MD - Last Filed: 12/28/24 20:10> Discharge Plan Discharge Clinical Impression: Pelvic pain <Mayela Coulter MD - Last Filed: 12/30/24 19:54> Patient Disposition: Home, Self-Care <Mayela Coulter MD - Last Filed: 12/30/24 19:54> Condition: Stable <Mayela Coulter MD - Last Filed: 12/30/24 19:54> Instructions: Pelvic Pain (ED) <Mayela Coulter MD - Last Filed: 12/30/24 19:54> Additional Instructions: As we discussed, please come back to the ER immediately if you have worsening symptoms or any concerns-especially if you have worsening severe pain, high fever, blood in your stool, urine, or other unusual vaginal bleeding or discharge. Please recheck with the [facility] within the next 1-3 days. Call to schedule an ER follow-up appointment with the [place] [facility] for within the next 1-3 days. <Mayela Coulter MD - Last Filed: 12/30/24 19:54> Activity Level: No Restrictions <Mayela Coulter MD - Last Filed: 12/30/24 19:54> No Restrictions <Mikhail Alvarez MD - Last Filed: 12/28/24 20:10> Discharge Diet: Regular <Mayela Coulter MD - Last Filed: 12/30/24 19:54> Regular <Mikhail Alvarez MD - Last Filed: 12/28/24 20:10> Prescriptions: No Action levetiracetam 500 mg tablet 1,250 mg PO BID estradiol [Vagifem] 10 mcg tablet 10 mcg vaginal 2XW Qty: 28 3RF Rx Instructions: Use nightly x2 weeks, then twice weekly thereafter <Mayela Coulter MD - Last Filed: 12/30/24 19:54> Follow Up/Referrals: Milton Barron MD [Primary Care Provider, Family Practice] <Mayela Coulter MD - Last Filed: 12/30/24 19:54> Stand Alone Forms: MyHealth Info Instructions <Mayela Coulter MD - Last Filed: 12/30/24 19:54>
--- NOTE | 2024-12-28 14:19 | CRLHL7_ITS ---
For Patients: As a result of the Cures Act, medical imaging exams and procedure reports are released immediately into your electronic medical record. You may view this report before your referring provider. If you have questions, please contact your health care provider. INDICATION: Left lower quadrant/suprapubic pain. History of kidney stones. TECHNIQUE: Noncontrast CT scan of the abdomen and pelvis. FINDINGS: The lung bases show a 2 mm subpleural pulmonary nodule along the lower portion of the left major fissure. No focal abnormalities identified in the visualized portions of the liver, spleen, pancreas, adrenal glands, and kidneys. No hydronephrosis. No uroliths. The GI tract is incompletely distended but shows no gross abnormalities. Normal appendix. No retroperitoneal, pelvic sidewall, or mesenteric adenopathy. Minimal atherosclerotic vascular calcifications. Impression : 1. No acute abnormalities of the abdomen or pelvis identified. No hydronephrosis. No uroliths. Dictated by Benji Colin MD @ 12/28/2024 5:06:16 PM Please note that all CT scans at this facility use dose modulation, iterative reconstruction, and/or weight-based dosing when appropriate to reduce radiation dose to as low as reasonably achievable. Dictated by: Benji Colin MD @ 12/28/2024 17:06:30 (Electronically Signed)
[2024-12-28 14:38] LABS: Lactate* 0.9 mmol/L (0.5-1.9)
[2024-12-28 14:40] LABS: Appearance Urine Clear (Clear)
[2024-12-28 14:41] LABS: Hematocrit* 44.0 % (33.0-51.0); Hemoglobin* 14.6 gm/dL (12.0-16.0); Immature Granulocytes Abs Auto 0.06 K/uL (0.00-0.30); Immature Granulocytes Pct Auto 0.6 %; Lymphocytes Absolute Auto 2.87 K/uL (0.90-2.90); Mean Corpuscular HGB Conc 33 gm/dL (32-36); Mean Corpuscular Hemoglobin 29 pg (26-34); Mean Corpuscular Volume 87 fL (80-100); RDW Coefficient of Variation % 13.0 % (11.5-15.5); Red Blood Count* 5.06 m/uL (4.00-5.20); White Blood Count* 10.08 K/uL (4.50-11.00)
[2024-12-28 14:43] LABS: Slide Review Reflex No
[2024-12-28 14:54] LABS: Chloride* 102 mmol/L (96-114); Potassium* 3.9 mmol/L (3.6-5.1); Sodium* 134 mmol/L (135-149)
[2024-12-28 14:57] LABS: Anion Gap 7 mEq/L (7-15); Blood Urea Nitrogen* 14 mg/dL (7-30); Calcium* 8.9 mg/dL (8.4-10.6); Carbon Dioxide* 25 mmol/L (20-32); Creatinine* 0.9 mg/dL (0.5-1.5); Est. Creatinine Clearance* 60.99; Estimated Glomerular Filt Rate 76 ml/min; Glucose* 96 mg/dL (60-115)
[2024-12-28 16:33] VITALS: BP 117/85; PULSE 52; RESP 18; TEMP 36.5; O2SAT 96
--- NOTE | 2024-12-28 17:22 | CRLHL7_ITS ---
For Patients: As a result of the Century Cures Act, medical imaging exams and procedure reports are released immediately into your electronic medical record. You may view this report before your referring provider. If you have questions, please contact your health care provider. CLINICAL HISTORY: Left lower quadrant and suprapubic pain. History of hysterectomy. TECHNIQUE: Transabdominal and transvaginal pelvic ultrasound. Transvaginal images of the pelvis were obtained for better visualization of pelvic structures. Grayscale and color Doppler images were submitted. COMPARISON: 12/28/[address] FINDINGS: Uterus: Hysterectomy. Residual cervix appears unremarkable. Endometrium: Hysterectomy. Right ovary: Not seen. Left ovary: Not seen. No adnexal mass. No free fluid. IMPRESSION: 1. No acute findings. 2. Hysterectomy. 3. Neither ovary was seen. Dictated by Lev Hunter MD @ 12/28/2024 7:56:23 PM (Electronically Signed)
[2024-12-28] MEDS: ACETAMINOPHEN 500 MG TABLET 1000 MG PO (17:40)
[2024-12-28 19:28] VITALS: BP 124/92; PULSE 54; RESP 18; TEMP 36.3; O2SAT 95
== END 2024-12-28 20:18 | disposition home or self-care (01) ==
PROVIDERS: Family Medicine; Emergency Provider Emergency Medicine; PCP Family Medicine
DX: R10.21 Pelvic and perineal pain right side (principal); R35.0 Frequency of micturition; Z87.440 Personal history of urinary (tract) infections; Z87.442 Personal history of urinary calculi; Z90.710 Acquired absence of both cervix and uterus
CPT/HCPCS: 36415; 74176; 76830; 80048; 81001; 83605; 85025; 86140; 96374; 99284; 99285; A9270; J1885

== ENCOUNTER 2024-12-30 14:56 | Outpatient (CLI) | payer BC, SELFPAY ==
[2024-12-30 17:32] LABS: Bacterial Vaginosis* Negative (Negative); Candida glab/krus NOT DETECTED (No Detected)
[2025-01-01 14:33] LABS: HPV Source Cervix
[2025-01-02 19:45] LABS: Pap Test Digital Imaging Done
== END 2024-12-30 14:57 | disposition home or self-care (01) ==
PROVIDERS: PCP Family Medicine; Visit Provider Registered Nurse
DX: Z12.4 Encounter for screening for malignant neoplasm of cervix (principal); R10.20 Pelvic and perineal pain unspecified side
CPT/HCPCS: 81513; 87481; 87624; 87625; 87661; 88141; 88142; 88175